=== PATIENT | female | born 2000 | race African-American/Black ===

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

== ENCOUNTER 2021-11-12 21:16 | Emergency (ER) | payer OTHER ==
[2021-11-12 21:48] VITALS: BP 120/66; PULSE 82; TEMP 97.6; BMI 23.8
== END 2021-11-12 21:49 | disposition left against medical advice (07) ==
LOC: JER 21:16
DX: R25.3 Fasciculation (principal)
CPT/HCPCS: 99281-25